=== PATIENT | male | born 1955 | race Caucasian/White ===

== ENCOUNTER 2019-04-04 22:34 | Emergency (ER) | payer BC ==
[2019-04-04 23:36] VITALS: BP 136/85; PULSE 64; TEMP 98.5; BMI 24.2
--- NOTE | 2019-04-04 23:36 | PDOC ---
Documentation entered by Violetta Rodriguez SCRIBE, acting as scribe for Sherly Perez MD. Sherly Perez MD: This documentation has been prepared by the lennyibe, Violetta Rodriguez SCRIBE, under my direction and personally reviewed by me in its entirety. I confirm that the documentation accurately reflects all work , treatment, procedures, and medical decision making performed by me. History of Present Illness - General Chief Complaint: Pain, Acute Stated Complaint: REACTION TO BEE STING FROM YESTERDAY History Source: Patient Exam Limitations: No Limitations - History of Present Illness Initial Comments: 04/04/19 22:53 The patient is a 63-year-old male who presents to the emergency department with redness and swelling to the left lower leg s/p bee sting. The patient reports taking Benedryl for the redness and swelling, without relief. Denies fever or chills. PAST MEDICAL HISTORY: no significant history PAST SURGICAL HISTORY: no significant history FAMILY HISTORY: no pertinent history SOCIAL HISTORY: Pt lives with family and is employed. MEDICATIONS: reviewed ALLERGIES: As per nursing notes General: No fevers or chills, no weakness, no weight loss HEENT: No change in vision. No sore throat,. No ear pain CardioVascular: No chest pain or shortness of breath Respiratory:No cough, or wheezing. Gastrointestinal: no nausea, vomiting, diarrhea or constipation, No rectal bleeding Genitourinary: No dysuria, hematuria, or frequency Musculoskeletal: +redness and swelling to the left lower leg. No other joint or muscle pain or swelling Neurologic: No headache, vertigo, dizziness or loss of consciousness Psychiatric: nor depression Skin: No rashes or easy bruising Endocrine: no increased thirst or abnormal weight change Allergic: no skin or latex allergy All other systems reviewed and normal GENERAL: The patient is awake, alert, and fully oriented, in no acute distress. HEAD: Normal with no signs of trauma. EYES: Pupils equal, round and reactive to light, extraocular movements intact, sclera anicteric, conjunctiva clear. EXTREMITIES: +left lower extremity: moderate amount of swelling, mild erythema with increased warmth over the upper portion of the lower leg primarily medially. Neurovascularly intact. Normal range of motion. NEUROLOGICAL: Normal speech, normal gait. PSYCH: Normal mood, normal affect. SKIN: Warm, Dry, normal turgor, no rashes or lesions noted. Assessment and plan: This is a 63-year-old male who was stung by a bee yesterday and now comes in complaining of increased redness and swelling in the area where the bee stung him. Patient otherwise denies any medical complaints or problems. I recommended the patient take Benadryl or a long-acting antihistamine that is non-drowsy such as Claritin or Brigid Patient discharged will follow-up with his primary care doctor as needed 04/04/19 23:08 *DC/Admit/Observation/Transfer Diagnosis at time of Disposition: Bee sting allergy - Discharge Dispostion Disposition: HOME Condition at time of disposition: Stable Decision to Admit order: No - Referrals - Patient Instructions Additional Instructions: Take a long-acting antihistamine such as Claritin or Brigid Return to the emergency department immediately with ANY new, persistent or worsening symptoms. Continue any medications as previously prescribed by your physician. You should follow up with your primary doctor as soon as possible regarding today's emergency department visit. . Please make sure your doctor reviews the results of your emergency evaluation. Thank you for coming to the Emergency Department today for your care. It was a pleasure to see you today. Please note that your evaluation is INCOMPLETE until you follow-up with your doctor. - Post Discharge Activity
== END 2019-04-04 23:37 | disposition home or self-care (01) ==
LOC: FER 22:34
DX: T63.441A Toxic effect of venom of bees, accidental (unintentional), initial encounter (principal); Y93.89 Activity, other specified; Y92.89 Other specified places as the place of occurrence of the external cause
CPT/HCPCS: 99281-25